=== PATIENT | male | born 1940 | race Caucasian/White ===

== ENCOUNTER → 2020-07-16 08:59 | Outpatient (BNVA) | payer MEDICARE, SELFPAY | PROVIDERS: PCP Internal Medicine; Visit Provider Internal Medicine Cardiovascular Disease | DX: I25.10 Atherosclerotic heart disease of native coronary artery without angina pectoris (principal); I10 Essential (primary) hypertension; I25.5 Ischemic cardiomyopathy; I25.2 Old myocardial infarction; Z79.82 Long term (current) use of aspirin; Z79.899 Other long term (current) drug therapy | CPT/HCPCS: 99212 ==

== ENCOUNTER 2020-08-02 10:42 | Emergency (ER) | payer MEDICARE, SELFPAY ==
--- NOTE | ~2020-08-02 | CT_ITS ---
EXAMINATION: CT CHEST WITH IV CONTRAST CT ABDOMEN AND PELVIS WITH IV CONTRAST CLINICAL INFORMATION: Trauma COMPARISON: Chest CT from 11/05/2016. Abdomen CT from 08/16/2015. TECHNIQUE: Multidetector CT imaging examination of the chest, abdomen and pelvis was performed with intravenous administration of 85 mL Omnipaque 350. Axial images are displayed at 0.625 mm and 5 mm slice thickness. Coronal and sagittal reformatted images were generated at the technologist's workstation and submitted for review. This CT examination was performed using dose optimization techniques as appropriate, variously including the following: *Automated exposure control *Adjustment of mA and/or kV according to patient size (this includes techniques or standardized protocols for targeted exams where dose is matched to indication/reason for exam; i.e. extremities or head) *Use of iterative reconstruction technique DLP: 1844 mGy-cm (for CT exams of the head, C-spine, chest, abdomen and pelvis) FINDINGS: CHEST - LUNGS AND PLEURA: Lungs are well expanded. The bronchial schreiber are chronically thickened there are scattered endobronchial secretions. Chronic mild pleural-parenchymal opacity of scarring at lung apices. Chronic subpleural reticular opacities of fibrosis, mid to lower lung zone and basilar predominance, with chronic honeycombing in lower lobes. The chronic disease includes mild traction bronchiectasis in lower lobes and right middle lobe. No acute abnormality. No pulmonary contusion, pneumothorax or pleural effusion. MEDIASTINUM/LOWER NECK: The heart size is normal. Atherosclerotic calcification of coronary arteries. No pericardial effusion. Mild atherosclerosis of the thoracic aorta without acute aortic pathology. No intramural hematoma, aneurysm or dissection. Pulmonary arteries are normal in caliber. No embolic filling defects in the central vessels. The esophagus and thyroid gland are unremarkable. LYMPHATICS: No pathologic sized axillary, hilar or mediastinal lymph nodes. CHEST WALL/BONES: No acute findings. At C6-C7, there is degenerative disc space narrowing, vertebral osteophyte formation and uncovertebral joint hypertrophy. Enthesophyte formation of the mildly degenerated thoracic spine. Thoracic vertebra have well preserved height and alignment. Sternum is intact. No evidence of an acute rib fracture or chest wall hematoma. ABDOMEN AND PELVIS - HEPATOBILIARY: Liver has normal size, contour and attenuation. No liver laceration or perihepatic fluid collection. Gallbladder is unremarkable. No intrahepatic or extrahepatic bile duct dilatation. PANCREAS: No acute abnormalities in the atrophied pancreas. No pancreatic edema or ductal dilatation. SPLEEN: Normal size and attenuation. ADRENAL GLANDS: Normal. KIDNEYS AND URETERS: Kidneys are normal in size and enhance symmetrically. No nephrolithiasis or hydronephrosis. 1 cm simple cyst at the lower pole of the left kidney. The ureters are unremarkable. BOWEL AND PERITONEUM: No dilated bowel loops. No evidence of inflammatory change or obstruction along the gastrointestinal tract. Multiple diverticula of the colon without evidence of diverticulitis. No ascites or pneumoperitoneum. ABDOMINAL WALL: Unremarkable. VESSELS: Atherosclerotic disease of the abdominal aorta. There is focal ectasia of the infrarenal abdominal aorta where aorta is 2.5 cm transverse diameter, compared to 2.4 cm on 04/26/2016. There appears to be old ulcerated plaque in this area of aortic ectasia. No retroperitoneal hematoma. LYMPH NODES: No pathologic sized lymph nodes in the abdomen or pelvis. No inguinal lymphadenopathy. BLADDER AND PELVIC VISCERA: Urinary bladder is well distended and has normal wall thickness. Prostate gland is unremarkable. No pelvic free fluid. MUSCULOSKELETAL: The lumbar vertebra have normal height and alignment. No acute findings in the degenerated lumbar spine. Pelvic bones and proximal femurs are intact. CT/CT abdomen pelvis w con IMPRESSION: * Chronic interstitial lung disease. No contusion, pneumothorax or pleural effusion. * No evidence of traumatic pathology in the abdomen or pelvis. * Colonic diverticulosis without diverticulitis. 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
--- NOTE | ~2020-08-02 | CT_ITS ---
EXAMINATION: HEAD CT AND CERVICAL SPINE CT WITHOUT CONTRAST CLINICAL INFORMATION: Trauma. COMPARISON: None. TECHNIQUE: Axial images through the head and cervical spine without contrast. Sagittal and coronal reconstructions on the technologist workstation were performed. Patient dose 1844 mg/cm. This CT examination was performed using dose optimization techniques as appropriate, variously including the following: *Automated exposure control. *Adjustment of mA and/or kV according to patient size (this includes techniques or standardized protocols for targeted exams where dose is matched to indication/reason for exam; i.e. extremities or head). *Use of iterative reconstruction technique. FINDINGS: HEAD CT: There is no evidence of an extra-axial collection. There is no evidence of intra-axial or extra-axial hemorrhage. The ventricles and extra-axial CSF spaces are appropriate. Nevarez-white matter differentiation is normal. There are old small right basal ganglia lacunar infarcts. No mass, mass effect or acute infarct is seen. Review of bone windows is normal. No skull fracture is seen. CERVICAL SPINE CT: Bone alignment is normal. No fracture or dislocation is seen. There is multilevel degenerative spondylosis and degenerative disc disease greatest at C5-C6 and C6-C7. There are degenerative changes at the C1 dens articulation. Prevertebral soft tissues are normal. There is bilateral carotid calcification. There is a 1.4 x 1.4 x 1.8 cm subcutaneous lesion in the posterior midline neck probably representing a small cyst or epidermoid. CT/CT head/brain wo con IMPRESSION: Head CT: No acute findings. Cervical spine CT: Degenerative changes. No fracture or dislocation.
--- NOTE | ~2020-08-02 | CT_ITS ---
EXAMINATION: HEAD CT AND CERVICAL SPINE CT WITHOUT CONTRAST CLINICAL INFORMATION: Trauma. COMPARISON: None. TECHNIQUE: Axial images through the head and cervical spine without contrast. Sagittal and coronal reconstructions on the technologist workstation were performed. Patient dose 1844 mg/cm. This CT examination was performed using dose optimization techniques as appropriate, variously including the following: *Automated exposure control. *Adjustment of mA and/or kV according to patient size (this includes techniques or standardized protocols for targeted exams where dose is matched to indication/reason for exam; i.e. extremities or head). *Use of iterative reconstruction technique. FINDINGS: HEAD CT: There is no evidence of an extra-axial collection. There is no evidence of intra-axial or extra-axial hemorrhage. The ventricles and extra-axial CSF spaces are appropriate. Nevarez-white matter differentiation is normal. There are old small right basal ganglia lacunar infarcts. No mass, mass effect or acute infarct is seen. Review of bone windows is normal. No skull fracture is seen. CERVICAL SPINE CT: Bone alignment is normal. No fracture or dislocation is seen. There is multilevel degenerative spondylosis and degenerative disc disease greatest at C5-C6 and C6-C7. There are degenerative changes at the C1 dens articulation. Prevertebral soft tissues are normal. There is bilateral carotid calcification. There is a 1.4 x 1.4 x 1.8 cm subcutaneous lesion in the posterior midline neck probably representing a small cyst or epidermoid. CT/CT cervical spine wo con IMPRESSION: Head CT: No acute findings. Cervical spine CT: Degenerative changes. No fracture or dislocation.
--- NOTE | ~2020-08-02 | XR_ITS ---
EXAMINATION: XR HAND, RIGHT CLINICAL INFORMATION: Pain after fall. COMPARISON: None TECHNIQUE: PA, lateral, and oblique views of the right hand. FINDINGS: Bones have normal alignment in the hand and wrist. No acute fracture or subluxation. The distal radius, ulna and radioulnar joint are intact. Carpal bones are intact. No evidence of scaphoid fracture. Mild osteoarthritis of the first carpometacarpal joint and of some of the metacarpophalangeal joints, including the first MCP joint. Mild and moderate osteoarthritis of multiple proximal and distal interphalangeal joints. There appears to be an old, healed fracture of the proximal fifth metacarpal. There is atherosclerotic calcification of the radial artery. XR/XR hand RT min 3V IMPRESSION: * No acute osseous abnormality in the hand or wrist. * Osteoarthritis of multiple joints.
[2020-08-02 10:53] VITALS: BP 150/90; BP 169/79; PULSE 74; RESP 18; TEMP 36.4; O2SAT 96; O2SAT 98; BMI 28.8
--- NOTE | 2020-08-02 11:03 | ED_ITS ---
HPI - Fall General Chief Complaint: Fall Stated Complaint: FALL, RIGHT HIP/WRIST PAIN,+CCOLLAR Time Seen by Provider: 08/02/20 11:03 Source: EMS Mode of arrival: EMS Limitations: no limitations History of Present Illness HPI Narrative: 80-year-old male with a past medical history of hypertension, coronary artery disease requiring stenting w/ multivessel disease (declined CABG), ischemic cardiomyopathy with EF 40-45%, COPD here status post mechanical fall. Patient tells me that he was walking and he lost his balance landing on the right side of his body. Is unsure if he hit his head. He denies loss of consciousness. He is here complaining of right hip pain, low back pain, right hand pain, right sided rib pain and right lower abdominal pain. He tells me he does have chronic low back pain secondary to an s1 joint problem but this pain is worse. He is on plavix. Cervical collar placed by EMS. MD complaint: fall Related Data Home Medications Medication Instructions Recorded Confirmed aspirin 81 mg tablet,delayed 81 mg PO DAILY 07/16/20 07/16/20 release atorvastatin 80 mg tablet 80 mg PO DAILY 07/16/20 07/16/20 finasteride 5 mg tablet 5 mg PO DAILY 07/16/20 07/16/20 losartan 100 mg tablet 100 mg PO DAILY 07/16/20 07/16/20 multivitamin 1 tab PO DAILY 07/16/20 07/16/20 tamsulosin 0.4 mg capsule mg PO 07/16/20 07/16/20 timolol maleate 0.5 % eye drops 1 drp OPHTHALMIC (EYE) DAILY ml 07/16/20 07/16/20 Previous Rx's Medication Instructions Recorded amlodipine 5 mg tablet 5 mg PO DAILY 60 Days #60 tab 03/19/20 clopidogrel 75 mg tablet 75 mg PO DAILY #90 tab 07/08/20 metoprolol tartrate 50 mg tablet 50 mg PO BID 90 Days #180 tab 07/08/20 Allergies Allergy/AdvReac Type Severity Reaction Status Date / Time DUST Allergy Unknown UNKNOWN Uncoded 02/27/20 15:51 Environmental Allergy Unknown Uncoded 10/11/18 00:00 SEASONAL ALLERGIES Allergy Unknown UNKNOWN Uncoded 02/27/20 15:51 Review of Systems Review of Systems: Yes all other systems are reviewed and are negative Constitutional: Constitutional: Reports no additional constitutional complaints, Denies body ache(s), Denies chills, Denies fever(s), Denies headache(s) and Denies weakness Eyes: Eyes: Reports no additional eye complaints and Denies change in vision ENT: Reports system reviewed and no additional complaints, except as documented, Denies dizziness, Denies headache(s), Denies nasal congestion, Denies nasal discharge and Denies neck pain Cardiovascular: Cardiovascular: Reports no additional cardiovascular complaints, Denies chest pain, Denies leg edema and Denies dyspnea Respiratory: Respiratory: Reports no additional respiratory complaints, Denies cough and Denies dyspnea Gastrointestinal: Gastrointestinal: Reports no additional gastrointestinal complaints, Reports abdominal pain, Denies diarrhea, Denies nausea and Denies vomiting Genitourinary: Genitourinary: Denies urinary incontinence Musculoskeletal: Musculoskeletal: Reports no additional musculoskeletal complaints, Reports back pain, Reports arthralgias, Denies joint swelling, Denies limited range of motion, Denies neck pain, Denies numbness and Denies tingling Integumentary/Breasts: Skin/Breast: Reports system reviewed and no additional complaints, except as docu and Denies rash Neurologic: Reports system reviewed and no additional complaints, except as documented, Denies Abnormal speech present, Denies dizziness, Denies headache(s), Denies numbness, Denies tingling and Denies weakness PMFSH Past Medical History Attestation statement: The following information was validated with the patient. Source: old records reviewed and nursing notes reviewed Medical History Arthritis COPD (chronic obstructive pulmonary disease) Diabetes Hypertension Interstitial lung disease Surgical History History of appendectomy History of colonoscopy History of cystoscopy S/P coronary angioplasty Family History Family History Mother No problems noted. Father No problems noted. Social History Social History Alcohol intake: never Smoking Status: Never smoker Advance Directives: No Advance Directives Information Provided: Yes Physical Exam Vital Signs: Vital Signs: Last Vital Signs Temp 98.0 F 08/02/20 14:58 Pulse 77 08/02/20 14:58 Resp 18 08/02/20 14:58 BP 176/80 H 08/02/20 14:58 Pulse Ox 95 08/02/20 14:58 Body Mass Index 28.8 Const: General: cooperative, healthy appearing, comfortable and no acute distress Orientation/consciousness: patient oriented x3 Limitations: no limitations HENMT: Head: Yes normal to inspection Ears: hearing grossly normal bilaterally General nose exam: Normal external nose present Face and sinus: Yes normal facial exam Mouth: Normal oral and palatal mucosa present Throat: Yes posterior oropharynx normal Eyes: General: appearance normal, both eyes and all related structures Pupils: Equal, round and reactive pupils present Neck: Other: c collar in place. Unable to examine neck d/t collar in place Neck: Yes normal visual inspection Chest: Other: Right lateral chest tender to palpate. No ecchymosis or crepitus or deformity of the chest wall noted Chest palpation & inspection: normal inspection of the chest Resp: Effort & Inspection: normal respiratory effort Auscultation: clear to auscultation bilaterally Cardio: Rate: regular rate Rhythm: regular rhythm Peripheral pulses: Peripheral pulses 2+ throughout GI: Inspection: Yes normal to inspection Palpation (GI): Soft to palpation and Tenderness to palpation present (GI) (Mild RLQ, no rebound or guarding ) Auscultation: normal bowel sounds Back/Spine/Pelvis: Other: Midline tenderness to the lumbar spine. No step- offs or deformities. No ecchymosis Tenderness over the right lateral hip. No obvious shortening or deformity. Tenderness over the distal dorsal right hand with no obvious ecchymosis, swelling deformity full range of motion Thoracic/Lumbar Spine: thoracic and lumbar spine normal to inspection Skin: General skin exam: no rashes or lesions noted Neuro: General: patient oriented x3, no focal motor deficits and normal sens ation to monofilament Cranial nerves: Yes Equal, round and reactive pupils present Cognition (Neuro): normal cognition Speech: No Abnormal speech present Gait exam (Neuro): Normal gait present Motor exam (neuro): 5/5 motor strength present throughout Extrem: General: Yes normal to inspection Course Course Course Narrative: 80-year-old male here with multiple complaints status post mechanical fall. C-collar in place. He does report hitting his head but there was no loss of consciousness. He is on Plavix. No neurological deficits. Complaining of right-sided chest pain, right lower abdomen pain and right hip and low back pain and right hand pain. Will need imaging, labs. Provide analgesia and re-assess. 1400-Imaging CT chest/abdomen/pelvis show no acute finding or fracture. Able to visualize right hip and pelvis with no acute fracture or dislocation noted. Lumbar vertebra show normal height and alignment with no acute findings. Pending Ct head/neck. Right hand x-ray shows no acute findings. 1430-Ct neck/head negative. Cervical collar removed. CMS intact before and after. Patient up and ambulated at his baseline. Likely contusions. Called family (grandiker baum) and updated on patient. They will come pick patient up. Reviewed worrisome signs and symptoms and when to return to the emergency department. Comfortable discharge home. MDM - Fall MDM Narrative Medical decision making narrative: Fracture versus contusion, liver laceration, bowel perf, ICH Medical Records Attestation: I reviewed the patient's medical records. Lab Data Attestation: I reviewed the patient's lab results. Result diagrams: 08/02/20 11:35 08/02/20 11:35 Labs: Lab Results 08/02/20 08/02/20 Range/Units 11:35 11:35 WBC 6.0 (4.8-10.8) X10*3/uL RBC 4.16 L (4.60-5.80) X10*6/uL Hgb 13.0 L (14.0-18.0) g/dl Hct 39.1 L (42-52) % MCV 94.0 (80-98) fL MCH 31.3 (27.0-33.0) pg MCHC 33.2 (31.0-36.0) g/dl RDW 12.7 (11.0-16.0) % Plt Count 132 L (160-400) X10*3/uL MPV 11.0 (9.4-12.4) fL Immature Gran % (Auto) 0.2 (0.0-0.4) % Neut % (Auto) 73.9 H (45-73) % Lymph % (Auto) 15.8 L (20-40) % [place] % (Auto) 6.3 (2-11) % Eos % (Auto) 3.3 (0-4) % Baso % (Auto) 0.5 (0-2) % Lymph # (Auto) 1.0 L (1.2-4.9) X10*3/uL [place] # (Auto) 0.4 (0.1-1.2) X10*3/uL Eos # (Auto) 0.2 (0.0-0.4) X10*3/uL Baso # (Auto) 0.0 (0.0-0.2) X10*3/uL Abs Immat Gran (auto) 0.01 (0.00-0.03) X10*3/uL Absolute Neuts (auto) 4.4 (2.0-8.3) X10*3/uL Absolute Nucleated RBC 0.000 (0.0-0.012) X10*3/uL Nucleated RBC % (auto) 0.0 (0.0-0.2) /100WBC Sodium 140 (135-145) mmol/L Potassium 4.1 (3.3-5.1) mmol/L Chloride 108 (96-108) mmol/L Carbon Dioxide 25 (22-29) mmol/L Anion Gap 11 L (12-20) BUN 18 H (9-16) mg/dL Creatinine 0.88 (0.5-1.4) mg/dL Estim Creat Clear Calc 70.3 Estimated GFR > 60 Random Glucose 162 H (60-115) mg/dL Calcium 8.8 (8.4-10.2) mg/dL Imaging Data hand xray: Attestation: I personally reviewed and interpreted this imaging study as follows: Radiologist's impression: EXAMINATION: XR HAND, RIGHT CLINICAL INFORMATION: Pain after fall. COMPARISON: None TECHNIQUE: PA, lateral, and oblique views of the right hand. FINDINGS: Bones have normal alignment in the hand and wrist. No acute fracture or subluxation. The distal radius, ulna and radioulnar joint are intact. Carpal bones are intact. No evidence of scaphoid fracture. Mild osteoarthritis of the first carpometacarpal joint and of some of the metacarpophalangeal joints, including the first MCP joint. Mild and moderate osteoarthritis of multiple proximal and distal interphalangeal joints. There appears to be an old, healed fracture of the proximal fifth metacarpal. There is atherosclerotic calcification of the radial artery. XR/XR hand RT min 3V IMPRESSION: * No acute osseous abnormality in the hand or wrist. * Osteoarthritis of multiple joints. CT scan abd/pelvis/chest: Attestation: I personally reviewed and interpreted this imaging study as follows: Radiologist's impression: IMPRESSION: * Chronic interstitial lung disease. No contusion, pneumothorax or pleural effusion. * No evidence of traumatic pathology in the abdomen or pelvis. * Colonic diverticulosis without diverticulitis. 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 Ct scan neck/head: Attestation: I personally reviewed and interpreted this imaging study as follows: Radiologist's impression: EXAMINATION: HEAD CT AND CERVICAL SPINE CT WITHOUT CONTRAST CLINICAL INFORMATION: Trauma. COMPARISON: None. TECHNIQUE: Axial images through the head and cervical spine without contrast. Sagittal and coronal reconstructions on the technologist workstation were performed. Patient dose 1844 mg/cm. This CT examination was performed using dose optimization techniques as appropriate, variously including the following: *Automated exposure control. *Adjustment of mA and/or kV according to patient size (this includes techniques or standardized protocols for targeted exams where dose is matched to indication/reason for exam; i.e. extremities or head). *Use of iterative reconstruction technique. FINDINGS: HEAD CT: There is no evidence of an extra-axial collection. There is no evidence of intra-axial or extra-axial hemorrhage. The ventricles and extra-axial CSF spaces are appropriate. Nevarez-white matter differentiation is normal. There are old small right basal ganglia lacunar infarcts. No mass, mass effect or acute infarct is seen. Review of bone windows is normal. No skull fracture is seen. CERVICAL SPINE CT: Bone alignment is normal. No fracture or dislocation is seen. There is multilevel degenerative spondylosis and degenerative disc disease greatest at C5-C6 and C6-C7. There are degenerative changes at the C1 dens articulation. Prevertebral soft tissues are normal. There is bilateral carotid calcification. There is a 1.4 x 1.4 x 1.8 cm subcutaneous lesion in the posterior midline neck probably representing a small cyst or epidermoid. CT/CT cervical spine wo con IMPRESSION: Head CT: No acute findings. Cervical spine CT: Degenerative changes. No fracture or dislocation. Discharge Plan Discharge Clinical Impression: Multiple contusions, Fall Patient Disposition: Home, Self-Care Instructions: Contusion in Adults (ED), Fall Prevention (ED) Additional Instructions: Ice to the areas of discomfort Continue tylenol for pain as needed Follow-up with PCP Prescriptions: No Action amlodipine 5 mg tablet 5 mg PO DAILY 60 Days Qty: 60 RF: 4 clopidogrel [Plavix] 75 mg tablet 75 mg PO DAILY Qty: 90 RF: 1 metoprolol tartrate 50 mg tablet 50 mg PO BID 90 Days Qty: 180 RF: 1 losartan 100 mg tablet 100 mg PO DAILY RF: 0 finasteride 5 mg tablet 5 mg PO DAILY RF: 0 tamsulosin 0.4 mg capsule PO RF: 0 atorvastatin 80 mg tablet 80 mg PO DAILY RF: 0 timolol maleate 0.5 % drops 1 drp ophthalmic (eye) DAILY RF: 0 aspirin [Adult Low Dose Aspirin] 81 mg tablet,delayed release (DR/EC) 81 mg PO DAILY RF: 0 multivitamin Tablet 1 tab PO DAILY RF: 0 Referrals: Pacheco Pearson MD [Primary Care Provider] - 2 days Interventions: ED Discharge Assessment Last Done: 08/02/20 14:58 Discharge Date/Time: 08/02/20 14:59
[2020-08-02 11:44] LABS: MANUAL DIFF FLAG NO
[2020-08-02 11:45] VITALS: RESP 18
[2020-08-02] MEDS: Morphine Sulfate 2 MG/ML CARTRIDGE IVPUSH ×2 (11:45→13:34)
[2020-08-02 11:47] LABS: Basophils Percent Auto 0.5 % (0-2); Eosinophils Absolute Auto 0.2 X10*3/uL (0.0-0.4); Eosinophils Percent Auto 3.3 % (0-4); Hematocrit 39.1 % (42-52); Imm Gran Abs Auto 0.01 X10*3/uL (0.00-0.03); Imm Gran Pct Auto 0.2 % (0.0-0.4); Lymphocytes Percent Auto 15.8 % (20-40); Mean Corpuscular HGB Conc 33.2 g/dl (31.0-36.0); Mean Corpuscular Hemoglobin 31.3 pg (27.0-33.0); Monocytes Absolute Auto 0.4 X10*3/uL (0.1-1.2); Monocytes Percent Auto 6.3 % (2-11); Neutrophils Absolute Auto 4.4 X10*3/uL (2.0-8.3); Neutrophils Percent Auto 73.9 % (45-73); Platelet Count 132 X10*3/uL (160-400); Red Blood Count 4.16 X10*6/uL (4.60-5.80); Red Cell Distribution Width 12.7 % (11.0-16.0)
[2020-08-02 12:24] LABS: Anion Gap 11 (12-20); Blood Urea Nitrogen 18 mg/dL (9-16); Calcium 8.8 mg/dL (8.4-10.2); Carbon Dioxide 25 mmol/L (22-29); Chloride 108 mmol/L (96-108); Creatinine Clr Calc Pharmacy 70.3; Estimated Glomerular Filt Rate > 60; Glucose Random 162 mg/dL (60-115); Potassium 4.1 mmol/L (3.3-5.1); Sodium 140 mmol/L (135-145)
[2020-08-02] MEDS: iohexoL 350 MG/ML 100 ML INFUS..BTL IV (13:18)
[2020-08-02 13:31] VITALS: BP 176/80; PULSE 73; RESP 20; TEMP 36.7; O2SAT 97
--- NOTE | 2020-08-02 14:49 | PC.NURSE ---
Patient ambulated to bathroom with walker. Steady gait. Patient able to dress self with no assistance.
[2020-08-02 14:58] VITALS: BP 176/80; PULSE 77; RESP 18; TEMP 36.7; O2SAT 95
== END 2020-08-02 14:59 | disposition home or self-care (01) ==
PROVIDERS: Nurse Practitioner Family; Emergency Provider Emergency Medicine; PCP Internal Medicine
DX: S10.93XA Contusion of unspecified part of neck, initial encounter (principal); S60.222A Contusion of left hand, initial encounter; S60.221A Contusion of right hand, initial encounter; M54.2 Cervicalgia; M79.642 Pain in left hand; M79.641 Pain in right hand; G44.309 Post-traumatic headache, unspecified, not intractable; R10.9 Unspecified abdominal pain; W01.10XA Fall on same level from slipping, tripping and stumbling with subsequent striking against unspecified object, initial encounter; Y93.9 Activity, unspecified; Y92.9 Unspecified place or not applicable; Y99.9 Unspecified external cause status; Z79.899 Other long term (current) drug therapy; Z79.82 Long term (current) use of aspirin
CPT/HCPCS: 36415; 70450; 71260; 72125; 73130; 74177; 80048; 85025; 96374; 96376; 99284; J2270; Q9967

== ENCOUNTER → 2020-10-01 09:12 | Outpatient (BNVA) | payer MEDICARE, SELFPAY | PROVIDERS: PCP Internal Medicine; Visit Provider Nurse Practitioner Family | DX: I25.10 Atherosclerotic heart disease of native coronary artery without angina pectoris (principal); R07.9 Chest pain, unspecified; I25.5 Ischemic cardiomyopathy; I10 Essential (primary) hypertension; Z95.5 Presence of coronary angioplasty implant and graft | CPT/HCPCS: 93005; 99212 ==

== ENCOUNTER → 2020-11-24 09:28 | Outpatient (REF) | payer MEDICARE, SELFPAY ==
--- NOTE | 2020-11-24 09:37 | CA_ITS ---
Transthoracic Echocardiogram Patient (Last, First, Middle): Elio Mendosa J Gender: Male Date of : 1940 Age: 80 Procedure Date: 11/24/2020 Procedure Type: Transthoracic Echocardiogram Location: OP Height: 170.18 cm Weight: 75.3 kg BSA: 1.87 m2 Heart Rate: bpm BP: 112 / 57 mmHg Clinical Nursing Manager: Referring MD: Cassy Blair RIGHT OF WAY MANAGERRandall Symptoms: I25.5 - Ischemic cardiomyopathy Study Quality: Good ECG Rhythm: Sinus Conclusions: - The left ventricular systolic function is low normal. The visually estimated ejection fraction is between 50-55%. - No obvious valvular pathology seen on this study. Findings Left Ventricle Normal left ventricular cavity size. There is normal left ventricular wall thickness. The left ventricular systolic function is low normal. The visually estimated ejection fraction is between 50-55%. There is no evidence of regional wall motion abnormalities. Diastolic function is normal for age. Right Ventricle Normal right ventricular cavity size and systolic function. Atria The left atrium is normal in size. The right atrium is normal in size. Aortic Valve There is mild calcification of the aortic valve. There is no aortic valve stenosis. There is no aortic valve regurgitation. Mitral Valve The mitral valve appears normal. There is trace mitral valve regurgitation. There is no mitral valve stenosis. Pulmonic Valve The pulmonic valve was not well visualized. There is trace pulmonic valve regurgitation. Tricuspid Valve Normal tricuspid valve structure. There is mild tricuspid valve regurgitation. The pulmonary artery systolic pressure is normal. Great Vessels The asc aorta is normal in size. Venous The inferior vena cava is normal in size and collapses greater than 50% with inspiration. Pericardium/Pleural There is no evidence of pericardial effusion. Prior Study Comparison Changes noted compared to prior study dated: 09/07/2018. LVEF improved. Wall motion abnormality not seen. Recommendations, Care & Conclusions No obvious valvular pathology seen on this study. Measurements 2D Linear Measurements RVIDd: 2.85 RVIDd Index: 1.52 IVSd: 0.74 0.6-0.9/0.6-1.0 cm LVIDd: 5.19 3.9-5.3/4.2-5.9 cm LVIDd Index: 2.78 2.4-3.2/2.2-3.1 cm/m2 LVIDs: 3.60 2.0-3.6 cm LVPWd: 0.93 0.7-1.1 cm Ao Root: 3.10 2.1-3.5 cm LA Diam: 3.50 2.7-3.8/3.0-4.0 cm LAIDs Index: 1.87 1.5-2.3 cm/m2 LV Mass: 191.09 67-162/88-224 g LV Mass Index: 102.19 43-95/49-115 g/m2 LVOT Diam: 2.30 3.0+(-)1.3 cm 2D Systolic Function EF 4C: 52.80 >55% EF 2C: 62.20 >55% EF BiP: 57.30 >55% Mitral Valve MV Pk E: 0.82 MV PK A: 0.73 MV Decel Time: 279.00 E/A: 1.10 E'Lateral: 7.72 E'Medial: 7.51 E/E' Med: 10.90 E/E' Lat: 10.60 Aortic Valve AoV Pk Darin: 1.45 AoV Mn Darin: 1.03 AoV VTI: 0.33 AoV Pk Grad: 8.00 Aov Mn Grad: 5.00 FERNANDO Cont.VTI: 2.16 LVOT LVOT Pk Darin: 0.69 LVOT Mn Darin: 0.53 LVOT VTI: 0.17 LVOT Pk Grad: 2.00 LVOT Mn Grad: 1.00 LVOT Diam: 2.30 LVOT Area: 4.15 Diastolic Function MV Pk E: 0.82 MV Pk A: 0.73 E/A: 1.10 E'Medial: 7.51 E/E' Med: 10.90 E' Laterial: 7.72 E/E' Lat: 10.60 Tricuspid Valve TR Pk Darin: 2.36 TR Pk Grad: 22.00 RA Press: 3.00 RVSP: 25.00 Great Vessels Aorta Ao Root-2D: 3.10 2.0-3.7 cm Ao Asc: 3.00 2.1-3.4 cm Updated in Other Vendor System with Status of Final Luis Ahuja MD electronically signed on 11/25/2020 4:49:13 PM with status of Final
== END ==
LOC: HO.CARD 09:28
PROVIDERS: Visit Provider Nurse Practitioner Family
DX: I25.5 Ischemic cardiomyopathy (principal); I25.10 Atherosclerotic heart disease of native coronary artery without angina pectoris; Z95.5 Presence of coronary angioplasty implant and graft
CPT/HCPCS: 93306

== ENCOUNTER → 2020-12-10 13:09 | Outpatient (BNVA) | payer MEDICARE, SELFPAY | PROVIDERS: Visit Provider Internal Medicine Cardiovascular Disease | DX: I25.5 Ischemic cardiomyopathy (principal); I25.10 Atherosclerotic heart disease of native coronary artery without angina pectoris; R09.89 Other specified symptoms and signs involving the circulatory and respiratory systems; I10 Essential (primary) hypertension | CPT/HCPCS: 99212 ==

== ENCOUNTER 2021-01-19 14:14 | Outpatient (REF) | payer MEDICARE, SELFPAY ==
--- NOTE | ~2021-01-19 | XR_ITS ---
EXAMINATION: XR CHEST CLINICAL INFORMATION: Interstitial pulmonary disease. COMPARISON: CT chest August 02, 2020. Chest x-ray August 29, 2018 TECHNIQUE: Frontal view of the chest was obtained. FINDINGS: Bibasilar reticular opacities due to interstitial lung disease and honeycombing is present similar to the CT study of August 02, 2020. No acute airspace disease. No pulmonary vascular congestion. No pleural effusion. Heart size is normal. Cardiac and mediastinal contours are normal. Multilevel degenerative spondylosis of the spine. XR/XR chest 1V IMPRESSION: Bibasilar reticular opacities due to interstitial lung disease similar to CT study August 02, 2020.
== END 2021-01-19 14:15 | disposition home or self-care (01) ==
LOC: HO.XRAY 14:14
PROVIDERS: PCP Internal Medicine; Visit Provider Internal Medicine
DX: J84.9 Interstitial pulmonary disease, unspecified (principal)
CPT/HCPCS: 71045; 99212

== ENCOUNTER 2021-01-21 13:59 | Outpatient (REF) | payer MEDICARE, SELFPAY ==
--- NOTE | ~2021-01-21 | US_ITS ---
EXAMINATION: US EXTRACRANIAL CAROTID DUPLEX, BILATERAL CLINICAL INFORMATION: Carotid bruit COMPARISON: None TECHNIQUE: Real-time ultrasound and Doppler techniques (integrating B-mode 2-D vascular images, Doppler spectral analysis and color-flow Doppler imaging) were utilized to interrogate the extracranial carotid arteries, the vertebral arteries and proximal subclavian arteries bilaterally. The degree of stenosis is determined by criteria similar to NASCET. FINDINGS: Right Side: 1. There is heterogeneous atherosclerotic plaque seen in the bifurcation/proximal ICA region. 2. The common carotid artery PSV proximally is 105 cm/s and distally 89.1 cm/s. 3. The proximal internal carotid artery velocities are 305 cm/s systolic and 73.0 cm/s diastolic. 4. The proximal external carotid artery PSV is 153 cm/s. 5. The vertebral artery shows antegrade flow. 6. The subclavian artery waveforms are normal. Left Side: 1. There is heterogeneous atherosclerotic plaque seen in the bifurcation/proximal ICA region. 2. The common carotid artery PSV proximally is 118 cm/s and distally 120 cm/s. 3. The proximal internal carotid artery velocities are 305 cm/s systolic and 69 cm/s diastolic. 4. The proximal external carotid artery PSV is 167 cm/s. 5. The vertebral artery shows antegrade flow. 6. The subclavian artery waveforms are normal. US/US carotid duplex BI IMPRESSION: 1. RIGHT: Moderate, hemodynamically significant stenosis of the proximal right internal carotid artery corresponding to a 50-79% stenosis by velocity criteria. 2. LEFT: Moderate, hemodynamically significant stenosis of the proximal left internal carotid artery corresponding to a 50-79% stenosis by velocity criteria.
== END 2021-01-21 14:00 | disposition home or self-care (01) ==
LOC: HO.US 13:59
PROVIDERS: Visit Provider Internal Medicine Cardiovascular Disease
DX: R09.89 Other specified symptoms and signs involving the circulatory and respiratory systems (principal); I65.23 Occlusion and stenosis of bilateral carotid arteries
CPT/HCPCS: 93880

== ENCOUNTER 2021-07-13 10:25 | Emergency (ER) | payer MEDICARE, SELFPAY ==
--- NOTE | ~2021-07-13 | XR_ITS ---
EXAMINATION: XR CHEST CLINICAL INFORMATION: Cough and chest wall pain. COMPARISON: Previous chest x-ray most recent January [address] July 2020. TECHNIQUE: 2 views of the chest were obtained. FINDINGS: The cardiac and mediastinal contours are stable. There are increased interstitial markings seen at the lung bases. This does not appear appreciably changed from previous exams. There is biapical pleural thickening. The lungs are otherwise clear. There is no pleural effusion or pneumothorax. There are degenerative changes of the spine. XR/XR chest 2V IMPRESSION: Increased interstitial markings at the lung bases compatible with a known interstitial lung disease. No evidence for acute disease in the chest.
[2021-07-13 10:51] VITALS: BP 159/71; PULSE 81; RESP 18; TEMP 36.1; O2SAT 95; BMI 26.4
[2021-07-13 11:38] LABS: COVID-19 Test Negative (Negative)
--- NOTE | 2021-07-13 11:44 | ED_ITS ---
HPI - URI/Sore Throat General Chief Complaint: Upper Respiratory Symptoms Stated Complaint: CONGESTION Time Seen by Provider: 07/13/21 11:13 Source: patient Mode of arrival: ambulatory Limitations: no limitations History of Present Illness HPI Narrative: 80-year-old male with a past medical history of hypertension, coronary artery disease requiring stenting with multivessel disease (declined CABG), ischemic cardiomyopathy with EF 40-45%, COPD presenting to the ED from long-term facility with complaints of fevers up to 100.3 that started this morning and a productive cough with yellow-colored sputum for the past 4 days. He reports that he is vaccinated to COVID. He denies any dizziness, headaches, neck pain/stiffness, nasal congestion/runny nose, sore throat, trouble swallowing or breathing, chest pain or shortness of breath, dyspnea on exertion, orthopnea, palpitations, lower extremity edema or calf tenderness, nausea/vomiting/diarrhea or or constipation or abdominal pain or any rashes. Denies any recent travel or sick contacts. MD elicited complaint: fever and cough Pertinent past history: COPD and other (See above) Onset (ago): day(s) (4) Consistency: constant and progressively worsening Severity: moderate Description of mucous: yellow Able to tolerate fluids by mouth: Yes Relieving factors: nothing Context: other (Lives in long-term facility although denies any recent sick contacts that he is aware of) Associated symptoms: fever and cough (With sputum production) Treatments prior to arrival: none Related Data Home Medications Medication Instructions Recorded Confirmed aspirin 81 mg tablet,delayed 81 mg PO DAILY 07/16/20 01/19/21 release (Adult Low Dose Aspirin) atorvastatin 80 mg tablet 80 mg PO DAILY 07/16/20 01/19/21 finasteride 5 mg tablet 5 mg PO DAILY 07/16/20 01/19/21 losartan 100 mg tablet 100 mg PO DAILY 07/16/20 01/19/21 multivitamin 1 tab PO DAILY 07/16/20 01/19/21 tamsulosin 0.4 mg capsule mg PO 07/16/20 01/19/21 timolol maleate 0.5 % eye 1 drp OPHTHALMIC (EYE) 07/16/20 01/19/21 drops DAILY ml Previous Rx's Medication Instructions Recorded amlodipine 5 mg tablet 5 mg PO DAILY 60 Days #60 tab 12/10/20 clopidogrel 75 mg tablet (Plavix) 75 mg PO DAILY #90 tab 12/10/20 metoprolol tartrate 50 mg tablet 50 mg PO BID 90 Days #180 tab 12/10/20 albuterol sulfate 90 mcg/actuation 1 inh INHALATION QID PRN #8.5 g 07/13/21 aerosol inhaler benzonatate 100 mg capsule 100 mg PO BID PRN #14 cap 07/13/21 doxycycline monohydrate 100 mg 100 mg PO BID 10 Days #20 tab 07/13/21 tablet prednisone 20 mg tablet 40 mg PO DAILY 5 Days #10 tab 07/13/21 Allergies Allergy/AdvReac Type Severity Reaction Status Date / Time DUST Allergy Unknown UNKNOWN Uncoded 02/27/20 15:51 Environmental Allergy Unknown Unknown Uncoded 01/19/21 14:27 SEASONAL ALLERGIES Allergy Unknown UNKNOWN Uncoded 02/27/20 15:51 Review of Systems Verdana 4l Review of Systems: Verdana 4d Verdana 4d Constitutional : No Weight loss, No Fever, No Chills, No Night Sweats, No Fatigue, No Malaise ENT/Mouth : No Hearing loss, No Ear Pain, No Nasal Congestion, No Sinus Pain, No Hoarseness, No sore throat, No Rhinorrhea, No Swallowing DifficultyDifficulty Eyes: No Eye Pain, No Swelling, No Redness, No Foreign Body, No Discharge, No Vision Changes Cardiovascular : No Chest Pain, No SOB, No Dyspnea on Exertion, No Orthopnea, No Edema, No Palpitations Respiratory : + Cough, + Sputum, No Wheezing, No Smoke Exposure, No Dyspnea Gastrointestinal : No Nausea, No Vomiting, No Diarrhea, No Constipation, No abdominal Pain, No Hematochezia, No Melena Genitourinary : no irregular bleeding, No Dysuria, No Urinary Frequency, No Hematuria, No Urinary Incontinence, No Urgency, No Flank Pain, No Urinary Flow Changes, No Hesitancy Musculoskeletal : No joint pain, No Myalgias, No Joint Swelling Skin : No Skin Lesions, No rash Neuro : No Weakness, No Numbness, No Paresthesias, No Loss of Consciousness, No Dizziness, No Headache Psych : No Anxiety/Panic, No Depression, No SI/HI/AH/VH, No Social Issues, Heme/Lymph: No Bruising, No Bleeding,No Lymphadenopathy Endocrine : No Polyuria, No Polydipsia, No Temperature Intolerance Yes all other systems are reviewed and are negative PMFSH Past Medical History Attestation statement: The following information was validated with the patient. Medical History Arthritis COPD (chronic obstructive pulmonary disease) Diabetes Hypertension ILD (interstitial lung disease) Interstitial lung disease Surgical History History of appendectomy History of colonoscopy History of cystoscopy S/P coronary angioplasty Family History Family History Mother No problems noted. Father No problems noted. Social History Social History Alcohol intake: never Advance Directives: Yes Advance Directives Information Provided: Yes Advance Directives on File: No Physical Exam Verdana 4l Vital Signs: Verdana 4d Verdana 4d Vital Signs: Verdana 4d Verdana 4Bd Last Vital Signs Verdana 4d Sterilisation Technician New 4d Sterilisation Technician New 4d Temp 97.0 F 07/13/21 10:51 Sterilisation Technician New 4d Pulse 81 07/13/21 10:51 Sterilisation Technician New 4d Resp 18 07/13/21 10:51 BP 159/71 H 07/13/21 10:51 Pulse Ox 95 07/13/21 10:51 BMI result Body Mass Index 26.4 vital signs have been reviewed as normal and appeared to be correct. Blood pressure 159/71. Heart rate normal. Respiration rate normal. Temperature normal. Oxygen saturation normal. Appearance: Alert. Oriented X3. No acute distress. Head: Normal external exam. Normocephalic. Atraumatic. Eyes: PERRLA. EOMI. Conjunctiva and sclera normal. Eyelids normal. ENT: EAC normal. TM's Normal. Pharynx normal. Uvula midline. Moist mucous membranes. No trismus noted. No drooling noted. No muffled voice noted. Neck: Normal inspection. Neck supple. FROM. No adenopathy. Thyroid Normal. No meningeal signs. No neck mass noted. CVS: Normal heart rate and rhythm. Heart sound normal. Pulses normal throughout. No murmurs/rales/gallops. Respiratory: No respiratory distress. Painless inspiration. Breath sounds noted to have rhonchi although no rales/wheezing noted. Chest nontender. No accessory muscle usage noted or decreased air movement noted. Abdomen: Soft and nontender. Bowel sounds normal in all 4 quadrants. No distention noted. No organomegaly noted. No visible injury noted. Back: Full range of motion noted. No rashes/lesion/induration/fluctuance or signs of infection noted. Skin: Skin warm and dry. Normal skin color. Normal skin turgor. No rashes/lesions/lacerations noted. Extremities: No lower extremity edema. No calf tenderness is noted. Extremities exhibit normal range of motion. Extremities nontender. Neuro: Oriented X 3. No motor deficit. No sensory deficit. Reflexes normal. Normal steady gait. No focal neuro deficits noted. Vascular: + radial pulses/+ 2 distal pedal pulses/+2 dorsalis pedis b/l. Normal cap refill. No cyanosis noted to upper extremity nails and lower extremity toes nails. Course Course Course Narrative: 80-year-old male with a past medical history of hypertension, coronary artery disease requiring stenting with multivessel disease (declined CABG), ischemic cardiomyopathy with EF 40-45%, COPD presenting to the ED from long-term facility with complaints of fevers up to 100.3 that started this morning and a productive cough with yellow-colored sputum for the past 4 days. He reports that he is vaccinated to COVID. He denies any dizziness, headaches, neck pain/stiffness, nasal congestion/runny nose, sore throat, trouble swallowing or breathing, chest pain or shortness of breath, dyspnea on exertion, orthopnea, palpitations, lower extremity edema or calf tenderness, nausea/vomiting/diarrhea or or constipation or abdominal pain or any rashes. Denies any recent travel or sick contacts. On exam patient is alert and oriented x3. Mildly hypertensive at 159/71 otherwise all other vitals are within normal limits. On exam patient noted to have rhonchi to the lungs otherwise no wheezing/rales noted. No signs of respiratory distress. No accessory muscle usage or tracheal tugging or stridor noted. CV RRR. Abdomen is soft and nontender no edema or distention. No lower extremity edema or calf tenderness is noted. Patient negative for COVID at this time. X-ray revealed interstitial lung markings are increased at the lung bases compatible with interstitial lung disease otherwise no other acute processes. Therefore will DC home antibiotics for possible bronchitis and Tessalon Perles along with instructions return if any new or worsening symptoms to follow up with primary care provider. Patient understands agrees with this plan. MDM - URI/Sore Throat Medical Records Attestation: I reviewed the patient's medical records. Lab Data Labs: Lab Results 07/13/21 Range/Units 11:09 COVID-19 ([facility]O) Negative (Negative) COVID-19 Clin Com See Note Imaging Data Chest x-ray: Attestation: I personally reviewed and interpreted this imaging study as follows: Radiologist's impression: FINDINGS: The cardiac and mediastinal contours are stable. There are increased interstitial markings seen at the lung bases. This does not appear appreciably changed from previous exams. There is biapical pleural thickening. The lungs are otherwise clear. There is no pleural effusion or pneumothorax. There are degenerative changes of the spine. XR/XR chest 2V IMPRESSION: Increased interstitial markings at the lung bases compatible with a known interstitial lung disease. No evidence for acute disease in the chest. Discharge Plan Discharge Clinical Impression: Acute bronchitis with chronic obstructive pulmonary disease (COPD) Patient Disposition: Home, Self-Care Instructions: Acute Bronchitis (ED) Prescriptions: New benzonatate 100 mg capsule 100 mg PO BID PRN (Reason: cough) Qty: 14 0RF doxycycline monohydrate 100 mg tablet 100 mg PO BID 10 Days Qty: 20 0RF prednisone 20 mg tablet 40 mg PO DAILY 5 Days Qty: 10 0RF albuterol sulfate 90 mcg/actuation HFA aerosol inhaler 1 inh inhalation QID PRN (Reason: shortness of breath or wheezing) Qty: 8.5 0RF No Action metoprolol tartrate 50 mg tablet 50 mg PO BID 90 Days Qty: 180 3RF clopidogrel [Plavix] 75 mg tablet 75 mg PO DAILY Qty: 90 3RF losartan 100 mg tablet 100 mg PO DAILY 0RF finasteride 5 mg tablet 5 mg PO DAILY 0RF tamsulosin 0.4 mg capsule PO 0RF atorvastatin 80 mg tablet 80 mg PO DAILY 0RF timolol maleate 0.5 % drops 1 drp ophthalmic (eye) DAILY 0RF aspirin [Adult Low Dose Aspirin] 81 mg tablet,delayed release (DR/EC) 81 mg PO DAILY 0RF multivitamin Tablet 1 tab PO DAILY 0RF amlodipine 5 mg tablet 5 mg PO DAILY 60 Days Qty: 60 4RF Referrals: Pacheco Pearson MD [Primary Care Provider] - 2 days Print Language: Czech
== END 2021-07-13 12:04 | disposition home or self-care (01) ==
PROVIDERS: Emergency Provider Emergency Medicine Emergency Medical Services; PCP Internal Medicine
DX: J20.9 Acute bronchitis, unspecified (principal); J44.0 Chronic obstructive pulmonary disease with (acute) lower respiratory infection; Z20.822 Contact with and (suspected) exposure to COVID-19; E11.29 Type 2 diabetes mellitus with other diabetic kidney complication; I10 Essential (primary) hypertension
CPT/HCPCS: 71046; 87635; 99283

== ENCOUNTER → 2021-07-22 14:09 | Outpatient (BNVA) | payer MEDICARE, SELFPAY | PROVIDERS: PCP Internal Medicine; Visit Provider Internal Medicine | DX: J44.9 Chronic obstructive pulmonary disease, unspecified (principal); J84.9 Interstitial pulmonary disease, unspecified; B00.1 Herpesviral vesicular dermatitis | CPT/HCPCS: 99212 ==

== ENCOUNTER → 2021-10-07 13:11 | Outpatient (BNVA) | payer MEDICARE, SELFPAY | PROVIDERS: PCP Internal Medicine; Visit Provider Internal Medicine Cardiovascular Disease | DX: I25.5 Ischemic cardiomyopathy (principal); I65.23 Occlusion and stenosis of bilateral carotid arteries; I25.2 Old myocardial infarction | CPT/HCPCS: 93005; 99212 ==

== ENCOUNTER → 2021-11-23 13:41 | Outpatient (BNVA) | payer MEDICARE, SELFPAY | PROVIDERS: PCP Internal Medicine; Visit Provider Internal Medicine | DX: J84.9 Interstitial pulmonary disease, unspecified (principal); J44.9 Chronic obstructive pulmonary disease, unspecified | CPT/HCPCS: 99212 ==

== ENCOUNTER → 2022-04-07 13:12 | Outpatient (BNVA) | payer MEDICARE, SELFPAY | PROVIDERS: PCP Internal Medicine; Visit Provider Internal Medicine Cardiovascular Disease | DX: I65.23 Occlusion and stenosis of bilateral carotid arteries (principal); I20.8 Other forms of angina pectoris; I10 Essential (primary) hypertension | CPT/HCPCS: 99212 ==

== ENCOUNTER → 2022-07-06 13:55 | Outpatient (BNVA) | payer MEDICARE, SELFPAY | PROVIDERS: PCP Internal Medicine; Visit Provider Internal Medicine | DX: J44.9 Chronic obstructive pulmonary disease, unspecified (principal); J84.9 Interstitial pulmonary disease, unspecified | CPT/HCPCS: 99212 ==

== ENCOUNTER 2022-11-19 09:29 | Emergency (ER) | payer MEDICARE, SELFPAY ==
[2022-11-19 09:33] VITALS: BP 151/59; BP 160/58; PULSE 63; PULSE 71; RESP 18; TEMP 36.5; O2SAT 96; O2SAT 98; BMI 27.2
[2022-11-19 10:20] VITALS: BP 138/58; PULSE 57; RESP 18; TEMP 36.6; O2SAT 97
--- NOTE | 2022-11-19 10:26 | ED_ITS ---
HPI - Fall General Chief Complaint: Fall Stated Complaint: FELL AGAINST RADIATOR LAC ON L FOREARM Time Seen by Provider: 11/19/22 09:52 Source: patient and EMS Mode of arrival: EMS Limitations: no limitations History of Present Illness HPI Narrative: Patient at a [place] walking with a muffin and his cane when he slipped and hit a railing with his arm causing a skin tear no other injuries Onset (ago): hour(s) Fall from: standing Place fall occurred: group home/SNF Related Data Home Medications Medication Instructions Recorded Confirmed aspirin 81 mg tablet,delayed 81 mg PO DAILY 07/16/20 04/07/22 release (Adult Low Dose Aspirin) atorvastatin 80 mg tablet 80 mg PO DAILY 07/16/20 04/07/22 finasteride 5 mg tablet 5 mg PO DAILY 07/16/20 04/07/22 losartan 100 mg tablet 100 mg PO DAILY 07/16/20 04/07/22 multivitamin 1 tab PO DAILY 07/16/20 04/07/22 timolol maleate 0.5 % eye drops 1 drp ophthalmic (eye) DAILY 07/16/20 04/07/22 tamsulosin 0.4 mg capsule 0.4 mg PO DAILY 10/07/21 04/07/22 Previous Rx's Medication Instructions Recorded amlodipine 5 mg tablet 5 mg PO DAILY 60 days #60 tabs 12/10/20 clopidogrel 75 mg tablet (Plavix) 75 mg PO DAILY #90 tabs 12/10/20 metoprolol tartrate 50 mg tablet 50 mg PO BID 90 days #180 tabs 12/10/20 Allergies Allergy/AdvReac Type Severity Reaction Status Date / Time DUST Allergy Unknown UNKNOWN Uncoded 07/06/22 14:23 Environmental Allergy Unknown Unknown Uncoded 07/06/22 14:23 SEASONAL ALLERGIES Allergy Unknown UNKNOWN Uncoded 07/06/22 14:23 Review of Systems Review of Systems: Yes all other systems are reviewed and are negative Integumentary/Breasts: Comments: skin tear Neurologic: Denies Sensory deficit (Neuro) PMF Past Medical History Medical History Arthritis COPD (chronic obstructive pulmonary disease) COPD (chronic obstructive pulmonary disease) Diabetes Herpes labialis Hypertension ILD (interstitial lung disease) Interstitial lung disease Surgical History History of appendectomy History of colonoscopy History of cystoscopy S/P coronary angioplasty Family History Family History Mother No problems noted. Father No problems noted. Social History Social History Alcohol intake: current Alcohol intake frequency: a few times a week Alcohol type: wine Patient Tobacco Use Status: Never used Tobacco Advance Directives: Yes Advance Directives on File: No Physical Exam Vital Signs: Vital Signs: Last Vital Signs Temp 97.8 F 11/19/22 10:20 Pulse 57 11/19/22 10:20 Resp 18 11/19/22 10:20 BP 138/58 L 11/19/22 10:20 Pulse Ox 97 11/19/22 10:20 O2 Del Method Room Air 11/19/22 10:20 BMI result Body Mass Index 27.2 Const: General: healthy appearing Nutritional Appearance: average body habitus Orientation/consciousness: oriented to person and patient oriented x3 Limitations: no limitations HEENT: Head: Yes normal to inspection Ears: external ears normal General nose exam: Normal external nose present Mouth: Normal oral and palatal mucosa present and oropharynx normal Throat: Yes posterior oropharynx normal Eyes: General: appearance normal, both eyes and all related structures Neck: Other: supple Neck: Yes normal visual inspection Chest: Chest palpation & inspection: normal inspection of the chest Resp: Auscultation: clear to auscultation bilaterally Cardio: Jugular venous distension: no JVD Rate: regular rate Rhythm: regular rhythm Heart sounds: S1 normal heart sound present and S2 normal heart sound present GI: Inspection: Yes normal to inspection Palpation (GI): Soft to palpation, nontender and No hepatosplenomegaly present Auscultation: normal bowel sounds : General: Yes no CVA tenderness Back/Spine/Pelvis: Back: no CVA tenderness Skin: Other: lft forearm skin tear about 10cm Neuro: General: oriented to person and patient oriented x3 Cranial nerves: Yes CN's II-XII intact bilaterally Motor exam (neuro): 5/5 motor strength present throughout Sensory Exam: No Sensory deficit (Neuro) Extrem: General: Yes normal to inspection Psych: Appearance: grossly normal Course Reevaluation(s) Reevaluation #1: wound dressed will dc home Time: 10:42 Medical Decision Making Differential Diagnosis Differential Diagnoses: The differential diagnosis associated with the presentation includes (skin tear, arm fracture) Tests considered The following testing was considered but not selected: considered in obtaining left forearm x ray, but arm nontender Social Determinants Lives in group home Discharge Plan Discharge Clinical Impression: Skin tear of forearm without complication Patient Disposition: Xfer [facility] Transfer Details: lives in a group home Instructions: Laceration Without Closure (ED) Prescriptions: No Action metoprolol tartrate 50 mg tablet 50 mg PO BID 90 Days Qty: 180 3RF clopidogrel [Plavix] 75 mg tablet 75 mg PO DAILY Qty: 90 3RF losartan 100 mg tablet 100 mg PO DAILY finasteride 5 mg tablet 5 mg PO DAILY atorvastatin 80 mg tablet 80 mg PO DAILY timolol maleate 0.5 % drops 1 drp ophthalmic (eye) DAILY aspirin [Adult Low Dose Aspirin] 81 mg tablet,delayed release (DR/EC) 81 mg PO DAILY multivitamin Tablet 1 tab PO DAILY tamsulosin 0.4 mg capsule 0.4 mg PO DAILY amlodipine 5 mg tablet 5 mg PO DAILY 60 Days Qty: 60 4RF Referrals: Physician,Unknown J [Primary Care Provider] - 10 days
== END 2022-11-19 12:01 ==
PROVIDERS: Emergency Provider Emergency Medicine
DX: S51.812A Laceration without foreign body of left forearm, initial encounter (principal); W01.198A Fall on same level from slipping, tripping and stumbling with subsequent striking against other object, initial encounter; E11.9 Type 2 diabetes mellitus without complications; I10 Essential (primary) hypertension; Z79.82 Long term (current) use of aspirin; Z79.02 Long term (current) use of antithrombotics/antiplatelets; Z79.899 Other long term (current) drug therapy; Y93.89 Activity, other specified; Y92.129 Unspecified place in nursing home as the place of occurrence of the external cause; Y99.9 Unspecified external cause status
CPT/HCPCS: 99283; 99284

== ENCOUNTER → 2022-12-01 14:15 | Outpatient (BNVA) | payer MEDICARE, SELFPAY | PROVIDERS: PCP Internal Medicine; Referring Provider Internal Medicine; Visit Provider Nurse Practitioner Family | DX: I25.10 Atherosclerotic heart disease of native coronary artery without angina pectoris (principal); I25.5 Ischemic cardiomyopathy; I65.23 Occlusion and stenosis of bilateral carotid arteries; E78.5 Hyperlipidemia, unspecified; I25.2 Old myocardial infarction; Z79.82 Long term (current) use of aspirin; Z79.02 Long term (current) use of antithrombotics/antiplatelets; Z79.899 Other long term (current) drug therapy; Z95.5 Presence of coronary angioplasty implant and graft | CPT/HCPCS: 93005; 99212 ==

== ENCOUNTER 2022-12-15 10:23 | Outpatient (REF) | payer MEDICARE, SELFPAY | END 2022-12-15 10:24 | disposition home or self-care (01) | LOC: HO.US 10:23 | PROVIDERS: PCP Internal Medicine; Visit Provider Nurse Practitioner Family | DX: I65.23 Occlusion and stenosis of bilateral carotid arteries (principal) | CPT/HCPCS: 93880 ==

== ENCOUNTER 2022-12-20 15:16 | Outpatient (AMB) | payer MEDICARE, SELFPAY ==
[2022-12-20 15:23] VITALS: BP 132/60; BMI 28.0
--- NOTE | 2022-12-20 15:23 | MHC.OFFVIS ---
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 Does have Hx of a stroke in 2019?, pt states he went to [facility]. Accompanied by: Grand Child Allergies DUST Allergy (Unknown, Uncoded 12/20/22 15:29) UNKNOWN Environmental Allergy (Unknown, Uncoded 12/20/22 15:29) Unknown SEASONAL ALLERGIES Allergy (Unknown, Uncoded 12/20/22 15:29) UNKNOWN HPI Urgent Cardio Ref for carotid stenosis s/p US HPI Details Very pleasant 82-year-old gentleman presents for evaluation regarding carotid disease. He was recently seen and worked up by Cardiology who obtained a E ultrasound and was concerning for high-grade right carotid stenosis. Upon discussion with the patient he denies any lateralizing signs or symptoms denies any speech disturbances or visual field deficits. He had an original carotid ultrasound on 01/21/2021 and there was no follow-up since that time. Cardiology had astcarli Ramírez obtain a repeat and showed progress and of disease. He now presents for evaluation with granddaughter present. Of note he is being maintained on aspirin Plavix and high-dose statin. [facility] Medical History Arthritis COPD (chronic obstructive pulmonary disease) COPD (chronic obstructive pulmonary disease) Diabetes Herpes labialis Hypertension ILD (interstitial lung disease) Interstitial lung disease Surgical History History of appendectomy History of colonoscopy History of cystoscopy S/P coronary angioplasty Family History Mother No problems noted. Father No problems noted. Social History Alcohol intake: current Alcohol intake frequency: a few times a week Alcohol type: wine Patient Tobacco Use Status: Never used Tobacco Review of Systems Const All systems reviewed & are unremarkable except as noted in HPI and below Reports no additional complaints ENT Reports Normal hearing present Card Denies chest pain, Denies chest pain at rest, Denies chest pain with activity and Denies pedal edema Resp Denies cough GI Denies abdominal pain Musc Denies abnormal gait, Denies muscle cramps and Denies radiating pain into limb Skin/Breast Denies skin ulcer and Denies wounds Neuro Reports Normal hearing present and Denies abnormal gait Psych Reports no additional complaints Physical Exam Vital Signs: Last Vital Signs BP 140/60 H 12/20/22 15:34 BMI result Body Mass Index 28.0 Const General: cooperative, healthy appearing and comfortable Orientation/consciousness: oriented to person, oriented to place and oriented to time HEENT Head: Yes normal to inspection Neck Neck: Yes normal visual inspection Carotids: no bruits Chest Chest palpation & inspection: normal inspection of the chest Resp Effort & Inspection: normal respiratory effort and able to speak in complete sentences Auscultation: clear to auscultation bilaterally, no crackles, no rales, no rhonchi and no wheezes Cardio Rate: regular rate Rhythm: regular rhythm Heart sounds: S1 normal heart sound present and S2 normal heart sound present Bruits: no carotid bruits Peripheral pulses: Peripheral pulses 2+ throughout GI Inspection: Yes normal to inspection Skin Wounds: no wounds Hair: normal Neuro General: oriented to person, oriented to place and oriented to time Cranial nerves: Yes CN's II-XII intact bilaterally and Yes Normal hearing present Cognition (Neuro): normal cognition Motor exam (neuro): 5/5 motor strength present throughout Extrem Other: venous exam: No significant superficial varicosities or spider telangiectasias, minimal edema General: No clubbing, No cyanosis and No edema Psych Appearance: grossly normal Mental Status: mental status grossly normal Speech and movement: Normal speech and movement present Results Reviewed Results Reviewed: Noninvasive carotid testing dated is 12/15/2022 demonstrates right-sided stenosis of 80 than 99% with a peak systolic of 429 and left side 50-79%. Assessment & Plan Assessment & Plan (1) Carotid stenosis, right: Code(s): I65.21 - Occlusion and stenosis of right carotid artery Plan: In short patient has asymptomatic carotid disease. We have reviewed signs and symptoms of a stroke. We also discussed risk factor modification inclusive a healthy diet low in cholesterol. Ultrasound demonstrates high-grade carotid stenosis. We will confirm this with CT angiogram. I also had an extensive discussion with the patient and granddaughter regarding carotid disease, the operation itself, and postoperative care. Towards the end of the conversation they indicated that they would like this surgery performed at [facility]. Apparently his grandson is a PA there. Unfortunately I do not currently have privileges at [facility]. I will obtain CT angiogram to confirm this. Should they require transfer of care to another vascular surgeon happy to forward all my records to them. Should there be any changes or signs or symptoms of a stroke we will be happy to see them back sooner. Thank you for allowing us to participate in this patient's care. If there are any questions or concerns please do not hesitate to contact us. Orders: Orders Blood Urea Nitrogen Today I65.21 - Occlusion and stenosis of right carotid artery Creatinine Today I65.21 - Occlusion and stenosis of right carotid artery CT angio neck 1 Week I65.21 - Occlusion and stenosis of right carotid artery Coding Level of Care Code New Pt Level 4 (62020) Diagnoses Carotid stenosis, right I65.21
[2022-12-20 15:34] VITALS: BP 140/60
== END 2022-12-20 16:02 | disposition home or self-care (01) ==
LOC: HO.HVS 15:16
PROVIDERS: PCP Internal Medicine; Visit Provider Surgery Vascular Surgery
DX: I65.21 Occlusion and stenosis of right carotid artery (principal)
CPT/HCPCS: 99204

== ENCOUNTER → 2022-12-20 15:16 | Outpatient (BNVA) | payer MEDICARE, SELFPAY | PROVIDERS: PCP Internal Medicine; Visit Provider Surgery Vascular Surgery | DX: I65.21 Occlusion and stenosis of right carotid artery (principal) | CPT/HCPCS: 99202 ==

== ENCOUNTER 2023-06-29 14:17 | Outpatient (AMB) | payer MEDICARE, SELFPAY ==
--- NOTE | 2023-06-29 14:20 | A.OFFVIS_ITS ---
Intake Vital Signs 06/29/23 14:21 Height 5 ft 7 in Weight 179 lb BMI 28.0 BP 130/60 Blood Pressure Location Lt brachial Position Sitting Pulse 88 Pulse Source Pulse Oximeter Pulse Oximetry (%) 98 Oxygen Delivery Method Room Air Intake Visit Reasons: ILD Intake Note: pt is here for follow up and had 2 arteries in the heart repaired about 6 months ago, and states his breathing is doing well. Pt will be transferring care to [facility] per the request of his family, moving all care there, so it can be done at one facility. Allergies DUST Allergy (Unknown, Uncoded 06/29/23 15:16) UNKNOWN Environmental Allergy (Unknown, Uncoded 06/29/23 15:16) Unknown SEASONAL ALLERGIES Allergy (Unknown, Uncoded 06/29/23 15:16) UNKNOWN Medication List - Last Reconciled 06/29/23 by Rosa Elena Clarke MD albuterol sulfate 90 mcg/actuation 2 puffs inhalation Q6H PRN aspirin (Adult Low Dose Aspirin) 81 mg PO DAILY atorvastatin 80 mg PO DAILY losartan 100 mg PO DAILY metoprolol tartrate 50 mg PO BID 90 days multivitamin 1 tab PO DAILY tamsulosin 0.4 mg PO DAILY timolol maleate 0.5% 1 drp ophthalmic (eye) DAILY Do you need a note to return to daycare/school/sports/work: No HPI ILD HPI Details MICKY IS 82 YEARS OLD VERY PLEASANT GENTLEMAN, WHO COMES TODAY FOR HIS ROUTINE FOLLOW-UP. DURING THE SUMMER MONTHS HE UNDERWENT CARDIAC CATHETERIZATION AND ANGIOPLASTY FOR 2 ARTERIES AT [facility]. HE CLAIMS THAT HE IS DOING WELL AND HAS ONLY MINIMAL SHORTNESS OF BREATH ON EXERTION. HE HAS MILD INTERMITTENT COUGH ESPECIALLY AT NIGHTTIME. HE USES ALBUTEROL 1 OR 2 PUFFS NO MORE THAN ONCE OR TWICE A DAY. HE IS NOT ON ANY LONG-ACTING MAINTENANCE INHALERS. LORIN IS BEING FOLLOWED FOR MINIMAL PULMONARY FIBROSIS, AND A VERY MILD COMPONENT OF OBSTRUCTIVE AIRWAY DISORDER. HE HAS THE FIBROTIC CHANGES IN THE BASILAR AREAS WITH PERIPHERAL HONEYCOMBING. 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 OVER THE PAST MANY YEARS IT HAS NOT PROGRESSED. HE HAS NOT REQUIRED TO USE OXYGEN . LUCKILY HE HAS REMAINED FREE OF ANY RESPIRATORY INFECTIONS [facility] Medical History COPD (chronic obstructive pulmonary disease) Herpes labialis ILD (interstitial lung disease) Arthritis Diabetes COPD (chronic obstructive pulmonary disease) Interstitial lung disease Hypertension Surgical History S/P coronary angioplasty History of colonoscopy History of cystoscopy History of appendectomy Family History Mother No problems noted. Father No problems noted. Social History Alcohol intake: current Alcohol intake frequency: a few times a week Alcohol type: wine Patient Tobacco Use Status: Never used Tobacco Review of Systems Const All systems reviewed & are unremarkable except as noted in HPI and below Eyes Reports no additional complaints ENT Reports no additional complaints and Reports other (Sores on the upper lip) Card Denies chest pain, Denies irregular heart rhythm, Denies leg edema and Reports dyspnea on exertion (Mild) Resp Reports cough (Mild) and Reports dyspnea on exertion (Mild) GI Reports no additional complaints Reports no additional complaints Musc Reports no additional complaints Skin/Breast Reports sores (A bunch of sores on the upper lip) Neuro Reports no additional complaints Psych Reports no additional complaints Endo Reports no additional complaints Saturnino/Lymph Reports no additional complaints Physical Exam Vital Signs: Last Vital Signs Pulse 88 06/29/23 14:21 BP 130/60 06/29/23 14:21 Pulse Ox 98 06/29/23 14:21 Oxygen Delivery Method Room Air 06/29/23 14:21 BMI result Body Mass Index 28.0 Const General: comfortable, no acute distress, alert and awake Orientation/consciousness: patient oriented x3 HEENT Head: Yes normal to inspection General nose exam: No nasal polyps present and No nasal discharge present Face and sinus: Yes sinuses nontender Mouth: oropharynx normal Throat: Yes posterior oropharynx normal Eyes General: appearance normal, both eyes and all related structures Neck Neck: Yes normal visual inspection, Yes no lymphadenopathy, Yes trachea midline and Yes no JVD Thyroid: Thyroid normal Chest Chest palpation & inspection: normal inspection of the chest (Midline scar from previous CABG surgery), normal palpation of entire chest wall and no tenderness Resp Other: Percussion note resonant, breath sounds are equal on both sides. Inspiratory crackles heard over both lower lobes .no wheezes. Cardio Palpation: normal PMI Rate: regular rate Rhythm: regular rhythm Heart sounds: no gallops and no murmurs GI Palpation (GI): Soft to palpation, nontender, No hepatosplenomegaly present and no masses Auscultation: normal bowel sounds Back/Spine/Pelvis Thoracic/Lumbar Spine: thoracic and lumbar spine normal to inspection Skin General skin exam: no rashes or lesions noted Lesions: lesion noted (A bunch of excoriated papules on the upper lip.) Neuro General: patient oriented x3 and no focal motor deficits Cranial nerves: Yes CN's II-XII intact bilaterally Extrem General: Yes normal to inspection, Yes no clubbing, cyanosis or edema and Yes no calf tenderness Psych Appearance: grossly normal and well kempt Speech and movement: Normal speech and movement present Results Reviewed Results Reviewed: CT/CT chest w con 08/02/20 IMPRESSION: * Chronic interstitial lung disease. No contusion, pneumothorax or pleural effusion. * No evidence of traumatic pathology in the abdomen or pelvis. * Colonic diverticulosis without diverticulitis. 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 Assessment & Plan Assessment & Plan (1) ILD (interstitial lung disease): Comment: HE HAS HAD DIAGNOSIS OF INTERSTITIAL LUNG DISEASE/PULMONARY FIBROSIS FOR THE PAST MANY YEARS. IT HAS BEEN STABLE AND RELATIVELY ASYMPTOMATIC . HE HAS NOT REQUIRED ANY SPECIAL MEDICATION OR OXYGEN. HIS ACTIVITY LEVEL REMAINS UN-AFFECTED Code(s): J84.9 - Interstitial pulmonary disease, unspecified (2) COPD (chronic obstructive pulmonary disease): Comment: He has only minimal degree of COPD associated with interstitial lung disease. TX : May use albuterol 2 puffs Q 4-6 hours only prn , but avoid any excessive use. Code(s): J44.9 - Chronic obstructive pulmonary disease, unspecified Plan: as above Plan Patient will be requesting to transfer his care to pulmonary Service at [facility]. He is advised to call us as soon as he makes appointment with a ripper operator and we will be glad to send copies of our records. Coding Level of Care Code Est Pt Level 3 (96461) Diagnoses ILD (interstitial lung disease) J84.9 COPD (chronic obstructive pulmonary disease) J44.9
[2023-06-29 14:21] VITALS: BP 130/60; PULSE 88; O2SAT 98; BMI 28.0
== END 2023-06-29 14:49 | disposition home or self-care (01) ==
PROVIDERS: PCP Internal Medicine; Visit Provider Internal Medicine
DX: J84.9 Interstitial pulmonary disease, unspecified (principal); J44.9 Chronic obstructive pulmonary disease, unspecified
CPT/HCPCS: 99213

== ENCOUNTER → 2023-06-29 14:17 | Outpatient (BNVA) | payer MEDICARE, SELFPAY | PROVIDERS: PCP Internal Medicine; Visit Provider Internal Medicine | DX: J84.9 Interstitial pulmonary disease, unspecified (principal); J44.9 Chronic obstructive pulmonary disease, unspecified | CPT/HCPCS: 99212 ==